=== PATIENT | male | born 1985 | race Caucasian/White ===

== ENCOUNTER 2018-07-31 08:52 | Emergency (ER) | payer SELFPAY ==
[2018-07-31] MEDS ORDERED: ASPIRIN 81 MG CHEWABLE TAB PO ONE (09:34)
[2018-07-31] MEDS ORDERED: MAG HYDROX/AL HYDROX/SIMETH 30 ML UDCUP PO ONE (09:34)
[2018-07-31] MEDS ORDERED: LIDOCAINE 2% VISCOUS 15 ML UDCUP PO ONE (09:34)
[2018-07-31] MEDS ORDERED: HYOSCYAMINE SULFATE 0.125 MG TAB PO ONE (09:34)
--- NOTE | 2018-07-31 09:34 | EDPHY ---
H & P Time Seen by Provider: 07/31/18 09:08 HPI/ROS: CHIEF COMPLAINT: Chest pain HISTORY OF PRESENT ILLNESS: Patient is a 33-year-old male who presents emergency department with substernal chest pain. His pain started upon waking at 5:30 a.m. This morning. It has been constant. He states that radiates to his left shoulder and left elbow. His pain is not positional. It is not sharp. He is not short of breath. He has a chronic cough that is not changed. Patient smokes cigarettes but denies THC. He has had no fevers or chills. No leg pain or swelling. No recent travel. No family history of cardiac disease. REVIEW OF SYSTEMS: 10 systems were reveiwed and are negative with the exception of the elements mentioned in the history of present illness. Past Medical/Surgical History: Denies Past surgical history: Right knee surgery Social history: The patient smokes cigarettes Smoking Status: Current every day smoker Physical Exam: Vitals noted GENERAL: Well-appearing, in no acute distress, alert. HEENT: Eyes normal to inspection, normal pharynx, no signs of dehydration. NECK: Normal, supple. RESPIRATORY: Clear to auscultation bilaterally, no rales, rhonchi or wheezing. Chest wall: No tenderness palpation. No rash. CVS: Regular rate and rhythm, no rubs, murmurs, or gallops. ABDOMEN: Soft, nontender, nondistended, no organomegaly. BACK: Normal to inspection, no CVA tenderness. SKIN: Normal color, no rash, warm, dry. No pallor. EXTREMITIES: No pedal edema, no calf tenderness, no Homans sign or cords, no joint swelling. NEURO/PSYCH: Alert and oriented, normal mood and affect, normal motor sensory exam. No obvious cranial nerve deficit. Constitutional: Initial Vital Signs Temperature (C) 36.8 C 07/31/18 08:58 Heart Rate 74 07/31/18 08:58 Respiratory Rate 18 07/31/18 08:58 Blood Pressure 165/104 H 07/31/18 08:58 O2 Sat (%) 98 07/31/18 08:58 O2 Delivery Mode Room Air Allergies/Adverse Reactions: No Known Allergies Allergy (Unverified 07/31/18 08:58) Home Medications: Medication Instructions Recorded Famotidine [Pepcid 20 MG (*)] 20 mg PO BID #10 tab 07/31/18 Medical Decision Making - Diagnostics Imaging Results: Imaging Impressions Chest X-Ray 07/31/18 09:34 Impression: Normal chest x-ray. ED Course/Re-evaluation: In the emergency department I discussed possible etiologies with the patient. I answered all his questions. An IV was placed. Laboratory studies, EKG and chest x-ray were obtained. Patient was given aspirin for his chest pain and Toradol for his pain. EKG shows normal sinus rhythm, normal rate, normal axis, normal intervals. There are no ST or T-wave abnormalities. EKG is normal as interpreted by me. Initial troponin 0 I discussed these results with the patient. Patient's white count was mildly elevated at 11. Hematocrit was elevated at 52. D-dimer was negative. I discussed the results with the patient. On recheck the patient was chest pain -free. He had no complaints. Repeat troponin was negative. EKG shows normal sinus rhythm, normal rate, normal axis, normal intervals. There are no ST or T-wave abnormalities. EKG is normal as interpreted by me. Patient was given warnings prior to leaving. He will follow up with his primary care physician. He was given Pepcid upon discharge. He was take a daily aspirin Differential Diagnosis: My differential includes but is not limited to ACS, acute SD, dissection, aneurysm, myocarditis, pericarditis, pleurisy, pneumonia, pneumothorax, bronchitis - Data Points Laboratory Results: Laboratory Results 07/31/18 09:10 07/31/18 09:10 07/31/18 07/31/18 07/31/18 11:06 09:11 09:10 WBC RBC Hgb Hct MCV MCH MCHC RDW Plt Count MPV Neut % (Auto) Lymph % (Auto) [place] % (Auto) Eos % (Auto) Baso % (Auto) Nucleat RBC Rel Count Absolute Neuts (auto) Absolute Lymphs (auto) Absolute Monos (auto) Absolute Eos (auto) Absolute Basos (auto) Absolute Nucleated RBC Immature Gran % Immature Gran # D-Dimer Sodium 141 mEq/L mEq/L (135-145) Potassium 4.4 mEq/L mEq/L (3.3-5.0) Chloride 102 mEq/L mEq/L (97-110) Carbon Dioxide 26 mEq/l mEq/l (22-31) Anion Gap 13 mEq/L mEq/L (6-14) BUN 8 mg/dL mg/dL (7-23) Creatinine 0.9 mg/dL mg/dL (0.7-1.3) Estimated GFR > 60 Glucose 110 mg/dL H mg/dL (70-100) Calcium 10.6 mg/dL H mg/dL (8.5-10.4) POC Troponin I 0.01 ng/mL ng/mL 0.00 ng/mL ng/mL (0.00-0.08) (0.00-0.08) 07/31/18 07/31/18 09:10 09:10 WBC 11.14 10^3/uL H 10^3/uL (3.80-9.50) RBC 6.32 10^6/uL 10^6/uL (4.40-6.38) Hgb 18.4 g/dL H g/dL (13.7-17.5) Hct 52.9 % H % (40.0-51.0) MCV 83.7 fL fL (81.5-99.8) MCH 29.1 pg pg (27.9-34.1) MCHC 34.8 g/dL g/dL (32.4-36.7) RDW 13.0 % % (11.5-15.2) Plt Count 292 10^3/uL 10^3/uL (150-400) MPV 9.8 fL fL (8.7-11.7) Neut % (Auto) 66.5 % % (39.3-74.2) Lymph % (Auto) 25.9 % % (15.0-45.0) [place] % (Auto) 5.7 % % (4.5-13.0) Eos % (Auto) 1.2 % % (0.6-7.6) Baso % (Auto) 0.4 % % (0.3-1.7) Nucleat RBC Rel Count 0.0 % % (0.0-0.2) Absolute Neuts (auto) 7.41 10^3/uL H 10^3/uL (1.70-6.50) Absolute Lymphs (auto) 2.89 10^3/uL 10^3/uL (1.00-3.00) Absolute Monos (auto) 0.63 10^3/uL 10^3/uL (0.30-0.80) Absolute Eos (auto) 0.13 10^3/uL 10^3/uL (0.03-0.40) Absolute Basos (auto) 0.05 10^3/uL 10^3/uL (0.02-0.10) Absolute Nucleated RBC 0.00 10^3/uL 10^3/uL (0-0.01) Immature Gran % 0.3 % % (0.0-1.1) Immature Gran # 0.03 10^3/uL 10^3/uL (0.00-0.10) D-Dimer < 0.27 ug/mLFEU ug/mLFEU (0.00-0.50) Sodium Potassium Chloride Carbon Dioxide Anion Gap BUN Creatinine Estimated GFR Glucose Calcium POC Troponin I Medications Given: Discontinued Medications Al Hydroxide/Mg Hydroxide (Maalox Susp) 30 ml PO ONCE ONE Stop: 07/31/18 09:35 Last Admin: 07/31/18 09:48 Dose: 30 ml Aspirin (Aspirin) 324 mg PO EDNOW ONE Stop: 07/31/18 09:35 Last Admin: 07/31/18 09:48 Dose: 324 mg Hyoscyamine Sulfate (Levsin, Hyomax-Sl) 0.25 mg PO ONCE ONE Stop: 07/31/18 09:35 Last Admin: 07/31/18 09:47 Dose: 0.25 mg Ketorolac Tromethamine (Toradol) 30 mg IVP EDNOW ONE Stop: 07/31/18 09:36 Last Admin: 07/31/18 09:51 Dose: 30 mg Lidocaine (Lidocaine 2% Viscous) 15 ml PO ONCE ONE Stop: 07/31/18 09:35 Last Admin: 07/31/18 09:48 Dose: 15 ml Point of Care Test Results: Chemistry 07/31/18 07/31/18 11:06 09:11 POC Troponin I 0.01 ng/mL ng/mL 0.00 ng/mL ng/mL (0.00-0.08) (0.00-0.08) Departure - Departure Disposition: Home, Routine, Self-Care Clinical Impression: Chest pain Qualifiers: Chest pain type: unspecified Qualified Code(s): R07.9 - Chest pain, unspecified Condition: Good Instructions: Chest Pain (ED) Additional Instructions: Return with increasing chest pain, shortness of breath, fever or any other concerns. You need close follow-up with primary care physician. Call today to make the next available appointment. Take a baby aspirin daily. Complete your entire prescription of Pepcid. Referrals: Damir Levin MD [Medical Doctor] - 5-7 days, call for appt. Prescriptions: Famotidine [Pepcid 20 MG (*)] 20 mg PO BID #10 tab
[2018-07-31] MEDS ORDERED: KETOROLAC 30 MG/1 ML SDV IVP ONE (09:35)
[2018-07-31 09:43] LABS: PLATELET COUNT 292 10^3/uL (150-400)
[2018-07-31] MEDS ORDERED: HYOSCYAMINE SULFATE 0.125 MG TAB ONE (09:49)
[2018-07-31] MEDS ORDERED: ASPIRIN 81 MG CHEWABLE TAB ONE (09:49)
[2018-07-31 11:12] VITALS: BP 164/69
--- NOTE | 2018-08-01 15:34 | CPEKG ---
Test Reason : OPEN Blood Pressure : / mmHG Vent. Rate : 061 BPM Atrial Rate : 060 BPM P-R Int : 164 ms QRS Dur : 090 ms QT Int : 389 ms P-R-T Axes : 021 026 016 degrees QTc Int : [address] elev, probable normal early repol pattern Confirmed by Annette Dong ([id number]) on 08/01/2018 3:33:47 PM Referred By: Confirmed By:Annette Dong
--- NOTE | 2018-08-01 15:34 | CPEKG ---
Test Reason : OPEN Blood Pressure : / mmHG Vent. Rate : 077 BPM Atrial Rate : 075 BPM P-R Int : 155 ms QRS Dur : 084 ms QT Int : 363 ms P-R-T Axes : 017 041 030 degrees QTc Int : 411 ms Sinus rhythm Confirmed by Annette Dong ([id number]) on 08/01/2018 3:33:47 PM Referred By: Confirmed By:Annette Dong
== END 2018-07-31 11:56 | disposition home or self-care (01) ==
DX: R07.9 Chest pain, unspecified (principal); F17.200 Nicotine dependence, unspecified, uncomplicated
CPT/HCPCS: 84484-PO; 96374; J1885